=== PATIENT | female | born 1950 | race Caucasian/White ===

== ENCOUNTER 2018-12-01 08:47 | Outpatient (CLI) | payer BC, SELFPAY ==
[2018-12-01 11:53] LABS: Cholesterol 254 mg/dL (50-200); Glucose 85 mg/dL (70-100); HDL Cholesterol 71 mg/dL (40-60); LDL CHOLESTEROL 161 mg/dL (<100); Triglyceride 139 mg/dL (30-150)
== END 2018-12-01 09:07 ==
PROVIDERS: PCP Family Medicine; Visit Provider Family Medicine
DX: E78.5 Hyperlipidemia, unspecified (principal); R73.02 Impaired glucose tolerance (oral)
CPT/HCPCS: 36415; 80061; 82947; 83721

== ENCOUNTER 2018-12-08 00:21 | Outpatient (CLI) | payer BC, SELFPAY ==
--- NOTE | 2018-12-08 08:00 | DI.MAMMO_ITS ---
SYMPTOM/DIAGNOSIS: SCREENING, Z12.31 MAMMOGRAMS: Mammograms were interpreted according to the usual protocol including computer analysis with CAD system, tomosynthesis and C view imaging. Comparison is made with prior examinations. Breast density, category B. No suspicious masses or microcalcifications are seen. There has been no significant change compared to the prior examinations. IMPRESSION: No evidence for malignancy. Yearly mammography is recommended. Category 1. MQSA ASSESSMENT OF FINDINGS: Negative. Category 1. Patient will receive a letter notifying them of these results. BI-RADS category B. There are scattered areas of fibroglandular density.
== END 2018-12-08 00:41 ==
PROVIDERS: PCP Family Medicine; Visit Provider Family Medicine
DX: Z12.31 Encounter for screening mammogram for malignant neoplasm of breast (principal)
CPT/HCPCS: 77063; 77067

== ENCOUNTER 2019-12-18 09:57 | Outpatient (CLI) | payer BC, SELFPAY ==
[2019-12-18 12:47] LABS: Calculated LDL 152 mg/dL (<100); Cholesterol 241 mg/dL (<200); HDL Cholesterol 67 mg/dL (40-60); Triglyceride 110 mg/dL (<150)
== END 2019-12-18 10:17 ==
PROVIDERS: PCP Family Medicine; Visit Provider Family Medicine
DX: E78.5 Hyperlipidemia, unspecified (principal)
CPT/HCPCS: 36415; 80061

== ENCOUNTER 2020-12-19 09:55 | Outpatient (CLI) | payer BC, SELFPAY ==
[2020-12-19 12:39] LABS: Calculated LDL 160 mg/dL (<100); Cholesterol 266 mg/dL (<200); HDL Cholesterol 76 mg/dL (40-60); Triglyceride 154 mg/dL (<150)
== END 2020-12-19 10:15 ==
PROVIDERS: PCP Family Medicine; Visit Provider Family Medicine
DX: E78.5 Hyperlipidemia, unspecified (principal)
CPT/HCPCS: 36415; 80061

== ENCOUNTER → 2024-04-30 02:42 | Outpatient (CLI) | payer MEDICARE, BC, SELFPAY ==
--- NOTE | 2024-04-30 07:30 | DI.DEXA_ITS ---
Exam(s) XR DEXA BONE DENSITY W/WO CARLOS EXAM: XR DEXA BONE DENSITY W/WO CARLOS CLINICAL HISTORY: screening for osteoporosis, postmenopausal state,Z78.0 TECHNIQUE: COMPARISON: No exams were available for comparison FINDINGS: Lateral Spine Image: Unremarkable. No compression deformities identified. Left hip: Total T-Score: -2.2. Total Z-Score: -0.5 T- and Z-scores: Findings are consistent with osteopenia with an increased fracture risk. There is o steoporosis in the femoral neck with a T-score of -2.5. Lumbar Spine: Total T-Score: -3.1 Total Z-Score: -0.8 T- and Z-scores: Findings consistent with osteoporosis. 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
== END ==
PROVIDERS: PCP Family Medicine; Visit Provider Nurse Practitioner Family
DX: Z78.0 Asymptomatic menopausal state (principal); Z12.31 Encounter for screening mammogram for malignant neoplasm of breast; Z13.820 Encounter for screening for osteoporosis; M81.0 Age-related osteoporosis without current pathological fracture
CPT/HCPCS: 77063; 77067; 77080

== ENCOUNTER 2024-09-14 00:36 | Outpatient (CLI) | payer MEDICARE, BC, SELFPAY ==
--- NOTE | 2024-09-14 07:30 | DI.US_ITS ---
APPROVED REPORT EXAM: Comprehensive 2D, Doppler, and color-flow Echocardiogram Patient Location: Out-Patient [facility] Architect: Ariana Quezada RDCS (AE) Indications: Cardiac murmur Other Information Study Quality: Adequate Conclusion Normal left ventricular wall thickness and chamber size. Ejection fraction is 57%. Wall motion is n ormal Normal right ventricular size and function Both atria are normal in size There are no structural valvular abnormalities Mild to moderate mitral regurgitation Estimated right ventricular systolic pressure is 23 mmHg Wall motion Left Ventricle The left ventricle is normal size. The left ventricular systolic function is normal. The left ventric ular ejection fraction is within the normal range. There is normal left ventricular wall thickness. T here is normal LV segmental wall motion. There is no ventricular septal defect visualized. LVEF is 57 %. Right Ventricle The right ventricle is normal size. The right ventricular systolic function is normal. Atria The left atrium size is normal. The right atrium size is normal. The interatrial septum is intact wit h no evidence for an atrial septal defect. Aortic Valve The aortic valve is normal in structure. Aortic valve is trileaflet. There is no aortic valvular sten osis. No aortic regurgitation is present. Mitral Valve The mitral valve is normal in structure. No evidence of mitral valve stenosis. Mild to moderate mitr al regurgitation. Tricuspid Valve The tricuspid valve is normal in structure. There is no tricuspid valve stenosis. Trace tricuspid reg urgitation. The RVSP is 23.3_ mmHg. Pulmonic Valve The pulmonary valve is normal in structure. There is no pulmonic valvular stenosis. There is no pulmo ramirez valvular regurgitation. Great Vessels The aortic root is normal in size. The ascending aorta is normal. Aortic arch is normal in caliber. I VC is normal in size and collapses >50% with inspiration. Pericardium There is no pericardial effusion. 2D Dimensions IVSD d PLAX 0.90 cm F: 0.6-1.0 Ao Root d 2.91 cm F: 2.7 - 3.3 LVPW d PLAX 0.90 cm F: 0.6 - 1.0 Ao Asc Diam d 3.27 cm F: 2.3 - 3.1 LVID d PLAX 4.90 cm F: 3.8 - 5.2 LVDs 3.41 cm F: 2.2 - 3.5 LV EF Teichholz 56.9 % FS 29.87 % LV EDV (Teich) 110.8 mL LV ESV (Teich) 47.8 mL M-Mode TAPSE 2.41 cm (M/F) >1.7 Auto EF LV EDV A4C 91.6 mL LV EDV A2C 97.8 mL LV EDV BP 95.9 mL LV ESV A4C 39.8 mL LV ESV A2C 42.0 mL LV ESV BP 40.8 mL LVEF(%) A4C 56.5 % LVEF(%) A2C 57.1 % LVEF(%) BP 57.5 % LV SV A4C 51.8 ml LV SV A2C 55.8 ml LV SV BP 55.1 ml LV CO A4C 2.8 L/min LV CO A2C 3.0 L/min LV CO BP 2.9 L/min HR A4C 54.37 BPM HR A2C 54.06 BPM LV EDV Index (BP) LA Volume LA Length A4C 4.6 cm LA Length A2C 5.0 cm LA Area A4C s 17.61 cm2 LA Area A2C s 18.14 cm2 LA Vol A4C A-L 56.88 mL LA Vol A2C A-L 56.44 mL LA Vol Biplane A-L 58.6 mL LA Vol/BSA A4C A-L LA Vol/BSA A2C A-L LA Vol/BSA BP A-L 38.1 mL/m2 LA Vol A4C MOD 53.8 mL LA Vol A2C MOD 53.0 mL LA Vol BP MOD 55.0 mL RA Volume RA Area A4C 10.5 cm2 RA ESV A4C (A-L) 25.1mL RA Vol/BSA A4C A-L RA Length A4C 3.7 cm RA ESV A4C (MOD) 25.0mL LV Diastology MV E' medial 0.074 (>0.07 m/s) MV E Vmax 0.90 (0.4-1.3 m/s) MV E/E' MED 12.15 (<14) MV A Vmax 0.65 (0.4-1.3 m/s) MV E' lateral 0.074 (>0.1 m/s) E/A Ratio 1.4 MV E/E' LAT 12.15 (<14) MV E' Average 0.074 m/s MV E/E'(average) 12.15 Aortic Valve AoV Vmax 1.81 m/s LVOT Vmax 1.43 m/s AoV Peak Grad 13.1 mmHg LVOT Peak Grad 8.1 mmHg AoV Area (Vmax) 1.98 cm2 LVOT VTI 0.285 m AoV VTI 0.415 m LVOT Mean Grad 4.1 mmHg AoV Mean Delmer. 1.17 m/s LVOT SV 71.67 mL AoV Mean Grad 6.5 mmHg LVOT Diam s 1.75 cm AoV Area (VTI) 1.73 cm2 AV Regurg Peak Gr. 13.12 mmHg Velocity Ratio 0.79 Mitral Valve MV DT 225 (160-240 msec) MV Vmax TIPS 0.84 m/s MV Mean Grad 1.1 (<2mmHg) MV VTI 0.314 m Pulmonary Valve PV Vmax 1.07 (0.5-1.5 m/s) RVOT Vmax 0.81 m/s PV Peak Grad 4.6 mmHg RVOT Peak Gr. 2.6 mmHg PV Mean Delmer 0.76 m/s RVOT VTI 0.186 m PV Mean Grad 2.6 mmHg RVOT Mean Gr. 1.5 mmHg Tricuspid Valve RA Pressure 3.00 mmHg TR Vmax 2.25 m/s TV S' 0.15 m/s TR Peak Grad 20.3 mmHg RVSP (TR) 23.3 mmHg
== END 2024-09-14 00:56 ==
LOC: DI 00:36
PROVIDERS: PCP Family Medicine; Visit Provider Naturopath
DX: R01.1 Cardiac murmur, unspecified (principal)
CPT/HCPCS: 93306